=== PATIENT | female | born 1960 | race Caucasian/White ===

== ENCOUNTER 2020-03-29 13:48 | Emergency (ER) | payer OTHER, SELFPAY ==
[2020-03-29] VITALS (8 sets, daily range): BP systolic 116–157; BP diastolic 58–75; PULSE 67–89; RESP 16–41; TEMP 37; O2SAT 96–100; BMI 26.6
--- NOTE | 2020-03-29 14:03 | ED_ITS ---
HPI - General Adult General Chief complaint: Neuro Symptoms/Deficit Stated complaint: Thinks Stroke Time Seen by Provider: 03/29/20 13:56 Source: patient Mode of arrival: Ambulatory Limitations: no limitations History of Present Illness HPI narrative: Patient is an otherwise healthy 59-year-old female here for evalu ation of which she describes as drooping of the left side of her face. Approximately 4 hours prior to arrival here in the emergency department she was on a video conference when she looks at herself in the picture notice that the left side of her face was drooping. She does not know exactly when the symptoms started but this is when she noticed the symptoms. She denies any other associated symptoms. She decided to see if things improved as the day went on and then went to her son who was at her house and asked him if he noticed anything and he stated that he thought the left side of her face was drooping as well so she came into the emergency department for evaluation. Related Data Previous Rx's Medication Instructions Recorded prednisone 40 mg PO DAILY 7 Days #14 tab 03/29/20 Allergies Allergy/AdvReac Type Severity Reaction Status Date / Time sulfamethoxazole Allergy Verified 03/29/20 14:18 [From Bactrim] trimethoprim [From Bactrim] Allergy Verified 03/29/20 14:18 Review of Systems Constitutional Constitutional: Denies chills, Denies fever(s), Denies headache(s) and Denies weakness Eyes Eyes: Denies blurry vision, Denies change in vision, Denies diplopia, Denies eye discharge and Denies dry eyes ENT Ears, Nose, Mouth, and Throat: Denies dental pain, Denies vertigo, Denies dizziness, Denies ear discharge, Denies otalgia, Denies headache(s), Denies disequilibrium and Denies sore throat Cardiovascular Cardiovascular: Denies chest pain and Denies dyspnea Respiratory Respiratory: Denies cough and Denies dyspnea Gastrointestinal Gastrointestinal: Denies abdominal pain, Denies nausea and Denies vomiting Genitourinary Genitourinary: Denies dysuria Genitourinary: Denies dysuria Musculoskeletal Musculoskeletal: Denies abnormal gait, Denies arthralgias, Denies myalgias, Denies numbness and Denies tingling Integumentary/Breasts Skin/Breast: Denies lesions and Denies rash Neurologic Neurologic: Denies abnormal speech, Denies abnormal gait, Denies behavioral changes, Denies confusion, Denies vertigo, Denies dizziness, Denies headache(s), Denies memory loss, Denies numbness, Denies tingling, Denies disequilibrium and Denies weakness Comments: Drooping left side of face Psychiatric Psychiatric: Denies anxiety, Denies behavioral changes, Denies confusion and Denies memory loss Hematologic/Lymphatic Hematologic/Lymphatic: Denies easy bleeding and Denies easy bruising Allergic/Immunologic Allergic/Immunologic: Denies urticaria Patient History Medical History Patient denies medical problems (Acute) Social History Smoking Status: Never smoker Exam Initial Vital Signs Initial Vital Signs: Vital Signs Temperature 98.6 F 03/29/20 14:05 Pulse Rate 89 03/29/20 14:05 Respiratory Rate 27 H 03/29/20 14:05 Blood Pressure 153/75 H 03/29/20 14:05 Pulse Oximetry 96 03/29/20 14:05 Const General: cooperative and comfortable Limitations: mental status not altered [facility] Head: normal to inspection and normocephalic Ears: external ears normal Nose: external nose normal Face and sinus: face symmetric Mouth: oral mucosae normal Eyes General: appearance normal, both eyes and all related structures Pupils: PERRL EOM: EOM intact bilaterally Resp Effort & Inspection: normal respiratory effort Auscultation: clear to auscultation bilaterally Cardio Rate: regular rate Rhythm: regular rhythm GI Inspection: non-distended Skin Lesions: no lesions Rashes: no rashes Neuro General: patient alert, patient awake and patient oriented x3 Cognition: normal cognition Speech: speech normal Gait: normal gait Motor: muscle tone normal throughout Sensory Exam: no sensory deficits noted Coordination: [id number] test normal Extrem General: capillary refill normal Psych Appearance: grossly normal and well kempt Scores GCS [place] coma scale eye opening: Spontaneous [place] coma scale verbal response: Orientated [place] coma scale motor response: Obey commands [place] coma scale total score: 15 NIH Stroke Scale Level of Conciousness: Alert, keenly responsive Ask month/age: Answers both questions correctly. Open/close eyes, close hand: Performs both tasks correctly Best gaze horizontal: Normal Visual kang: No visual loss Facial palsy: Minor paralysis, flattened nasolabial fold, asymmetry on smiling Left arm drift: No drift for full 10 sec Right arm drift: No drift for full 10 sec Left leg drift: No drift for full 5 sec Right leg drift: No drift for full 5 sec Limb ataxia: Absent Sensory on face/arms/legs: Mild to moderate sensory loss, can tell touch Best language: No aphasia, normal Dysarthria: Normal Extinction or inattention: No abnormality Total NIH Stroke scale score: 2 Course Orders Ordered: ED Orders 03/29/20 14:00 Basic Metabolic Panel Stat Complete Blood Count AUTO DIFF Stat Partial Thromboplastin Time Stat Prothrombin Time INR Stat 03/29/20 14:04 CT head/brain wo con Stat 03/29/20 14:30 EKG-12 Lead Stat 03/29/20 14:49 MR stroke Stat Vital Signs Vital signs: Vital Signs - 8 hr 03/29/20 14:05 03/29/20 14:12 03/29/20 14:23 Temperature 98.6 F Pulse Rate 77 74 70 Respiratory Rate 29 H 41 H 16 Blood Pressure 153/75 H 129/63 136/58 L Pulse Oximetry 100 99 99 03/29/20 14:30 03/29/20 16:07 03/29/20 16:10 Temperature Pulse Rate 74 67 Respiratory Rate Blood Pressure 129/60 116/70 Pulse Oximetry 100 100 Medical Decision Making Lab Data Lab results reviewed: Yes I reviewed the patient's lab results. Result diagrams: 03/29/20 14:00 03/29/20 14:00 Labs: Lab Results 03/29/20 03/29/20 03/29/20 Range/Units 14:00 14:00 14:00 WBC 5.6 (4.5-11.0) X10^3/uL RBC 4.74 (4.0-5.2) X10^6/uL Hgb 14.6 (12.0-16.0) g/dL Hct 42.7 (36-46) % MCV 90.0 (80-100) fL MCH 30.7 (26-34) PG MCHC 34.2 (30-36) % RDW 13.7 (11.6-14.8) % Plt Count 212 (150-400) X10^3/uL Neut % (Auto) 54.4 (50-75) % Lymph % (Auto) 35.9 (25-40) % [place] % (Auto) 7.0 (3-14) % Eos % (Auto) 1.7 L (2-4) % Baso % (Auto) 1.0 (0-2) % Neut # (Auto) 3000 (4943-6274) /uL Lymph # (Auto) 2000 (9788-5030) /uL [place] # (Auto) 400 (0-900) /uL Eos # (Auto) 100 (0-450) /uL Baso # (Auto) 100 (0-100) /uL PT 11.0 (10.1-12.7) SECONDS INR 1.0 (0.9-1.3) APTT 34 (26.4-36.2) SECONDS Sodium 139 (137-145) mmol/L Potassium 3.8 (3.4-5.1) mmol/L Chloride 105 (98-107) mmol/L Carbon Dioxide 26 (22-32) mmol/L BUN 13 (7-17) mg/dL Creatinine 0.70 (0.52-1.04) mg/dL Estimated GFR > 60.0 (>60) mL/min BUN/Creatinine Ratio 18.6 (6-22) Glucose 109 H (70-100) mg/dL Calcium 9.9 (8.4-10.2) mg/dL Imaging Data CT scan - head: Radiologist's Impression: [place] [address] CT Scan Report Signed Patient: Danya Mcdaniel [facility]#: [id number] : 1960Acct:[id number] Age/Sex: 59 / FDate of Service: 03/29/20 Loc: ED Accession Number: [id number] Procedure: CT head/brain wo con Ordering Provider: Duglas Valentin D.O. PROCEDURE: CT HEAD/BRAIN WO CON INDICATIONS: Left-sided facial droop TECHNIQUE: Noncontrast 4.5 mm thick angled axial sections acquired from the foramen magnum to the vertex, with coronal and sagittal reformats. For radiation dose reduction, the following was used: automated exposure control, adjustment of mA and/or kV according to patient size. COMPARISON: None. FINDINGS: Image quality: Excellent. CSF spaces: Basal cisterns are patent. No extra-axial fluid collections. Ventricles are normal in size and shape. Brain: No evidence of acute intracranial hemorrhage, mass effect, or midline shift. There is no loss of bah-white matter differentiation to suggest acute infarct. Skull and face: Calvarium and visualized facial bones are intact, without suspicious lesions. Sinuses: Visualized sinuses and mastoids are clear. IMPRESSION: No acute intracranial abnormality demonstrated. MRI recommended if there is continued clinical concern for recent ischemia or other acute process. Dictated by: Edgar Cardenas M.D. on 03/29/2020 at 14:33 Approved by: Edgar Cardenas M.D. on 03/29/2020 at 14:38 MRI brain: Radiologist's Impression: [address] [address] Magnetic Resonance Report Signed Patient: Danya Mcdaniel [facility]#: [id number] : 1960Acct:[id number] Age/Sex: 59 / FDate of Service: 03/29/20 Loc: ED Accession Number: [id number] Procedure: MR stroke Ordering Provider: Duglas Valentin D.O. PROCEDURE: MR STROKE Pre- and post-contrast brain MRI, non-contrast brain MR angiogram, pre- and postcontrast neck MR angiogram INDICATIONS: left sided facial droop TECHNIQUE: Brain: Noncontrast axial T1 spin echo, axial T2 fast spin echo, sagittal and axial FLAIR, coronal T2 fast spin echo, axial gradient echo, axial diffusion and ADC through the brain. After the administration of contrast, axial 3D VIBE of the cranial vasculature and brain. Brain MRA: Non-contrast 3-D time of flight MR angiogram, with multiple qgplroj-pkigzjmbi-jqxwxmwvlq (MIP) reformats performed. Neck MRA: Axial and sagittal TruFISP through the neck. Coronal dynamic MR angiogram during administration of contrast in the arterial and venous phases, with 3- dimenstional qmzlrsf-jvplhalrs-qlxmpubxto (MIP) reformats constructed from subtraction images. COMPARISON: [facility], CT, CT HEAD/BRAIN WO CON, 03/29/2020, 14:16. FINDINGS: Image quality: Excellent. BRAIN: CSF spaces: Ventricles are normal in size and shape. Basal cisterns are patent. No extra-axial fluid collections. Brain: No intracranial hemorrhage or mass effect. A few scattered foci of T2 /FLAIR hyperintense signal in the subcortical and periventricular white matter are nonspecific but most commonly encountered in the setting of mild chronic microvascular ischemic changes. Diffusion weighted images show no acute ischemic insults. Brainstem appears normal. Normal intravascular flow voids are present. No abnormal intracranial enhancement. Skull and face: Calvarial marrow signal is normal. Orbits appear normal. Sinuses: Sinuses and mastoids are clear. BRAIN MR ANGIOGRAM: Anterior circulation: Intracranial internal carotid arteries are normal in size and enhancement. The flow within the paired anterior cerebral arteries is normal and symmetric. The flow within the middle cerebral arteries is normal and symmetric. The anterior communicating artery is seen. No stenoses, occlusions, or aneurysms. Posterior circulation: The visualized portions of the vertebral arteries demonstrate normal caliber, and join to form a normal appearing basilar artery. The flow within the posterior cerebral arteries is normal and symmetric. Bilateral posterior communicating arteries are seen. No stenoses, occlusions, or aneurysms. NECK MR ANGIOGRAM: Carotids: Great vessels demonstrate a conventional anatomy as they arise from the aortic arch. The origins of the common carotid arteries appear patent. The calibers and courses of both common carotid arteries are normal. The bifurcation regions appear normal bilaterally. The internal carotid arteries demonstrate caliber. The right internal carotid artery is tortuous. Posterior circulation: The origins of the vertebral arteries appear patent. More superior portions of both vertebral arteries demonstrate normal course and caliber, and join to form a normal appearing basilar artery. Miscellaneous: Subclavian arteries appear patent. Pre-contrast images through the neck show no soft tissue abnormalities. Degenerative changes are noted in the cervical spine without high-grade spinal canal narrowing. IMPRESSION: BRAIN MRI: No acute intracranial hemorrhage or infarct. Mild chronic small vessel ischemic changes. BRAIN MR ANGIOGRAM: No hemodynamically significant arterial stenosis or occlusi on. NECK MR ANGIOGRAM: No hemodynamically significant arterial stenosis or occlusion. Dictated by: Simon Dozier M.D. on 03/29/2020 at 16:07 Approved by: Simon Dozier M.D. on 03/29/2020 at 16:18 ECG Data Attestation: I personally reviewed and interpreted this ECG as follows: Prior ECG tracings: not available for review Interpretation: Sinus rhythm Ventricular rate is 66 Normal axis Normal QRS Normal QTC No ST T wave change MDM Narrative Medical decision making narrative: Head CT was unremarkable an MRI of the brain was also unremarkable. Upon re-evaluation after the MRI her symptoms have greatly improved if not completely resolved. Nursing had further discussion with the patient and the patient stated that she has had migraine headaches in the past and has had some neurologic symptoms. She states that they were normally hormone related. Now that she has gone through menopause her presenting symptoms with her migraines have been somewhat different than in the past. We also discussed the possibility of Lynn's palsy. I feel given the literature to support steroids with Lynn's palsy that starting her on a one-week course is not unreasonable given the lack of exact etiology of her symptoms. I feel that since her symptoms have almost resolved that we can hold on acyclovir has large her supports this medicine in profound facial palsy which she currently does not have. We did discuss return precautions and follow-up instructions. Patient expressed understanding and agreement. Discharge Plan Departure Patient Disposition: Home Clinical Impression: Facial palsy Instructions: DI for [place] Palsy, Prednisolone Improves Recovery From Lynn's Palsy Activity Restrictions/Additional Instructions: Recommend you take the steroids as directed. Contact your primary provider for follow-up. Return to the emergency department for any new or worsening symptoms Prescriptions: New prednisone 20 mg tablet 40 mg PO DAILY 7 Days Qty: 14 RF: 0
[2020-03-29 14:10] LABS: Add Manual Diff / Slide Review NO; Basophils Absolute Auto 100 /uL (0-100); Eosinophils Absolute Auto 100 /uL (0-450); Eosinophils Percent Auto 1.7 % (2-4); Hematocrit 42.7 % (36-46); Hemoglobin 14.6 g/dL (12.0-16.0); Lymphocytes Absolute Auto 2000 /uL (1100-4500); Lymphocytes Percent Auto 35.9 % (25-40); Mean Corpuscular HGB Conc 34.2 % (30-36); Mean Corpuscular Hemoglobin 30.7 PG (26-34); Monocytes Absolute Auto 400 /uL (0-900); Neutrophils Absolute Auto 3000 /uL (1500-7000); Neutrophils Percent Auto 54.4 % (50-75); Platelet Count 212 X10^3/uL (150-400); Red Blood Cell Count 4.74 X10^6/uL (4.0-5.2); Red Cell Distribution Width 13.7 % (11.6-14.8); White Blood Cell Count 5.6 X10^3/uL (4.5-11.0)
[2020-03-29 14:18] LABS: PTT Partial Thromboplastin Tim 34 SECONDS (26.4-36.2)
[2020-03-29 14:20] LABS: BUN Creatinine Ratio 18.6 (6-22); Blood Urea Nitrogen 13 mg/dL (7-17); Calcium 9.9 mg/dL (8.4-10.2); Carbon Dioxide 26 mmol/L (22-32); Chloride 105 mmol/L (98-107); Estimated Glomerular Filt Rate > 60.0 mL/min (>60); Glucose 109 mg/dL (70-100); HEMOLYSIS < 15 (0-50); Potassium 3.8 mmol/L (3.4-5.1); Sodium 139 mmol/L (137-145)
--- NOTE | 2020-03-29 14:49 | DI.MRI.S_ITS ---
PROCEDURE: MR STROKE Pre- and post-contrast brain MRI, non-contrast brain MR angiogram, pre- and postcontrast neck MR angiogram INDICATIONS: left sided facial droop TECHNIQUE: Brain: Noncontrast axial T1 spin echo, axial T2 fast spin echo, sagittal and axial FLAIR, coronal T2 fast spin echo, axial gradient echo, axial diffusion and ADC through the brain. After the administration of contrast, axial 3D VIBE of the cranial vasculature and brain. Brain MRA: Non-contrast 3-D time of flight MR angiogram, with multiple wmxhynl-kbisbocfp-jirwubmdqv (MIP) reformats performed. Neck MRA: Axial and sagittal TruFISP through the neck. Coronal dynamic MR angiogram during administration of contrast in the arterial and venous phases, with 3-dimenstional akgyikk-mqbikkmzo-eihlfwagqt (MIP) reformats constructed from subtraction images. COMPARISON: Located [facility], CT, CT HEAD/BRAIN WO CON, 03/29/2020, 14:16. FINDINGS: Image quality: Excellent. BRAIN: CSF spaces: Ventricles are normal in size and shape. Basal cisterns are patent. No extra-axial fluid collections. Brain: No intracranial hemorrhage or mass effect. A few scattered foci of T2/FLAIR hyperintense signal in the subcortical and periventricular white matter are nonspecific but most commonly encountered in the setting of mild chronic microvascular ischemic changes. Diffusion weighted images show no acute ischemic insults. Brainstem appears normal. Normal intravascular flow voids are present. No abnormal intracranial enhancement. Skull and face: Calvarial marrow signal is normal. Orbits appear normal. Sinuses: Sinuses and mastoids are clear. BRAIN MR ANGIOGRAM: Anterior circulation: Intracranial internal carotid arteries are normal in size and enhancement. The flow within the paired anterior cerebral arteries is normal and symmetric. The flow within the middle cerebral arteries is normal and symmetric. The anterior communicating artery is seen. No stenoses, occlusions, or aneurysms. Posterior circulation: The visualized portions of the vertebral arteries demonstrate normal caliber, and join to form a normal appearing basilar artery. The flow within the posterior cerebral arteries is normal and symmetric. Bilateral posterior communicating arteries are seen. No stenoses, occlusions, or aneurysms. NECK MR ANGIOGRAM: Carotids: Great vessels demonstrate a conventional anatomy as they arise from the aortic arch. The origins of the common carotid arteries appear patent. The calibers and courses of both common carotid arteries are normal. The bifurcation regions appear normal bilaterally. The internal carotid arteries demonstrate caliber. The right internal carotid artery is tortuous. Posterior circulation: The origins of the vertebral arteries appear patent. More superior portions of both vertebral arteries demonstrate normal course and caliber, and join to form a normal appearing basilar artery. Miscellaneous: Subclavian arteries appear patent. Pre-contrast images through the neck show no soft tissue abnormalities. Degenerative changes are noted in the cervical spine without high-grade spinal canal narrowing. IMPRESSION: BRAIN MRI: No acute intracranial hemorrhage or infarct. Mild chronic small vessel ischemic changes. BRAIN MR ANGIOGRAM: No hemodynamically significant arterial stenosis or occlusion. NECK MR ANGIOGRAM: No hemodynamically significant arterial stenosis or occlusion. Dictated by: Simon Dozier M.D. on 03/29/2020 at 16:07 Approved by: Simon Dozier M.D. on 03/29/2020 at 16:18
== END 2020-03-29 16:55 | disposition home or self-care (01) ==
PROVIDERS: Emergency Provider Emergency Medicine
DX: G51.0 Bell's palsy (principal); R07.9 Chest pain, unspecified
CPT/HCPCS: 36415; 70450; 70548; 70553; 80048; 85025; 85610; 85730; 93005; 93010; 99284; 99285

== ENCOUNTER → 2023-02-14 09:49 | Outpatient (CLI) | payer BC, SELFPAY ==
--- NOTE | 2023-02-14 | DI.CT.S_ITS ---
PROCEDURE: CT HEAD/BRAIN WO CON INDICATIONS: MEMORY LOSS / MIGRAINE WITH AURA TECHNIQUE: Noncontrast 4.5 mm thick angled axial sections acquired from the foramen magnum to the vertex, with coronal and sagittal reformats. For radiation dose reduction, the following was used: automated exposure control, adjustment of mA and/or kV according to patient size. COMPARISON: [facility], MR, MR STROKE, 03/29/2020, 15:15. [facility], CT, CT HEAD/BRAIN WO CON, 03/29/2020, 14:16. FINDINGS: Image quality: Excellent. CSF spaces: Basal cisterns are patent. No extra-axial fluid collections. The ventricles are symmetric in size and shape. Brain: No intracranial bleeds or masses. There is cerebral volume loss for age, with resultant ventricular and sulcal prominence. There are periventricular and deep white matter chronic small vessel ischemic changes. There is intracranial internal carotid artery atherosclerosis. Skull and face: Calvarium and visualized facial bones appear intact, without suspicious lesions. Sinuses: Visualized sinuses and mastoids are clear. IMPRESSION: Unremarkable noncontrast CT for age, similar to prior. If there is strong clinical suspicion for an acute stroke, please consider a brain MRI for further evaluation, as it is more sensitive (assuming that there is no contraindication to MRI). Dictated by: Abel Ruffin M.D. on 02/14/2023 at 9:30 Approved by: Abel Ruffin M.D. on 02/14/2023 at 9:34
== END ==
PROVIDERS: PCP Physician Assistant; Referring Provider Physician Assistant; Visit Provider Physician Assistant
DX: R41.3 Other amnesia (principal); G43.109 Migraine with aura, not intractable, without status migrainosus; I65.29 Occlusion and stenosis of unspecified carotid artery
CPT/HCPCS: 70450